=== PATIENT | female | born 1955 | race African-American/Black ===

== ENCOUNTER 2021-10-06 13:02 | Emergency (ER) | payer OTHER ==
[~2021-10-06] VITALS: Ht 162.6 cm; Wt 65.3 kg
[~2021-10-06 13:02] MED LIST: DUONEB 2.5-0.5 M3 ML INH; PREDNISONE 20 M20 MG PO; QVAR HFA 440 MCG/UN1 INH; VENTOLIN HFA INH8 GM IH; VENTOLIN17 GM INH; ZPAK PO; ZYRTEC10 M2 PO
[2021-10-06 16:29] LABS: URINE BILIRUBIN NEGATIVE (Negative); URINE BLOOD TRACE (Negative); URINE COLOR YELLOW; URINE GLUCOSE-RANDOM* NEGATIVE (Negative); URINE KETONES NEGATIVE (Negative); URINE LEUKOCYTES-REFLEX TRACE (Negative); URINE NITRITE-REFLEX NEGATIVE (Negative); URINE PROTEIN (DIPSTICK) NEGATIVE (Negative); URINE SPECIFIC GRAVITY >= 1.030 (1.005-1.035); URINE UROBILINOGEN 0.2 E.U./dl (0.2-1.0)
[2021-10-06 16:32] LABS: URINE CLARITY CLEAR
[2021-10-06 20:40] LABS: BASOPHILS 1.2 % (0.0-2.0); EOSINOPHILS 3.8 % (0.0-3.0); HEMATOCRIT 43.6 % (37.0-47.0); HEMOGLOBIN 14.3 gm/dL (12.0-15.0); MCH 27.3 pg (26.0-34.0); MCHC 32.8 g/dL (28.0-37.0); MCV 83.1 fL (80.0-100.0); MONOCYTES 8.5 % (1.0-8.0); PLATELET COUNT 330 thou/uL (150-400); POLYS 43.5 % (36.0-66.0); RBC 5.24 mil/uL (4.20-5.00); WBC 6.9 thou/uL (4.0-11.0)
[2021-10-06 20:58] LABS: CALCIUM 9.3 mg/dL (8.5-10.1); CREATININE 0.8 mg/dL (0.6-1.0); POTASSIUM 3.8 mmol/L (3.5-5.1)
[2021-10-06 21:04] LABS: ALBUMIN 3.8 g/dL (3.4-5.0); TOTAL BILIRUBIN 0.6 mg/dL (0.2-1.0); TOTAL PROTEIN 8.3 g/dL (6.4-8.2)
[2021-10-06 22:54] VITALS: BP 120/84
[2021-10-08] MEDS ORDERED: TRAMADOL 50 MG50 MG PO (14:23)
[2021-10-08] MEDS ORDERED: IPRAT-ALBUT 0.5-3 ML NEB (14:23)
[2021-10-08] MEDS ORDERED: VENTOLIN HFA INH8 GM INH (14:24)
[2021-10-08] MEDS ORDERED: QVAR REDIHALE10.6 G1 INH (14:26)
== END 2021-10-06 22:55 | disposition home or self-care (01) ==
LOC: ER 13:02
PROVIDERS: Nurse Practitioner
DX: K80.80 Other cholelithiasis without obstruction (principal); J45.909 Unspecified asthma, uncomplicated; Z79.899 Other long term (current) drug therapy

== ENCOUNTER → 2021-10-09 | Day surgery (SDC) | payer OTHER ==
[~2021-10-09] VITALS: Ht 162.6 cm; Wt 65.3 kg
[~2021-10-09] MED LIST changes: +HYDROCODON-ACE1 EAC7 PO; +IPRAT-ALBUT 0.5-3 ML NEB; +QVAR REDIHALE10.6 G1 INH; +TRAMADOL 50 MG50 MG PO; +VENTOLIN HFA INH8 GM INH
[2021-10-09 07:24] LABS: HEMATOCRIT 43.8 % (37.0-47.0); HEMOGLOBIN 13.8 gm/dL (12.0-15.0)
[2021-10-09 07:53] VITALS: BP 124/87
[2021-10-09 09:44] VITALS: BP 124/87
--- NOTE | 2021-10-10 15:07 | PATH ---
[facility] [place], [place] [address] [place] [address] PATHOLOGY RPT PROCEDURE Name: ROSE GAUTHIER Room #: REG [facility].#: [id number] Admission: 10/09/21 Date of : 55 Discharge: Report #: [id number] Path Case #: [id number] [facility] Accession Number: [id number] . 01 Material submitted: . gallbladder - GALLBLADDER . 01 Clinical history: . LAPAROSCOPIC CHOLECYSTECTOMY WITH G HERNIA REPAIR, UMBILICAL CHOLELITHIASIS WITH ACUTE CHOLECYSTITIS . 01 Diagnosis: Gallbladder, "gallbladder, cholecystectomy": - Moderate chronic cholecystitis. . (SHA:mmozzie; 10/10/2021) [facility] 10/10/2021 1315 Local . 01 Electronically signed: . Mark Stein MD, Pathologist NPI- [id number] . 01 Gross description: . Fixative: Formalin Labeled: Gallbladder Specimen received: Previously opened gallbladder Dimensions: 6.2 x 2.7 x 1.0 cm Serosa: Green-welch, wrinkled and roughened Lymph node: Not identified Mucosa: Velvety, bile-stained Average wall thickness: 0.2 cm Calculi: Not present Abnormalities: None identified . A1- Scrap Handler body, fundus, and the cystic duct margin. ([facility]; 10/09/2021) NRI/NRI 10/09/2021 1845 Local . 01 Pathologist provided ICD-10: K81.1 . 01 CPT . 070837 Specimen Comment: A courtesy copy of this report has been sent to [phone] Specimen Comment: Report sent to Performed at: [address] [address] PATHOLOGY RPT PROCEDURE Name: GAUTHIERROSE Room #: REG [facility]..#: [id number] Admission: 10/09/21 Date of : 55 Discharge: Report #: [id number] Path Case #: [id number] [facility] [address], [place], [place] [id number] MD Mark Stein MD Phone: [phone]
--- NOTE | 2021-10-11 11:05 | O ---
[facility] [place] [address] OPERATIVE REPORT Name: ROSE GAUTHIER Room #: REG [facility].#: [id number] Admission: 10/09/21 Attend Phys: Odilon Johnson MD Discharge: Date of : 55 Report #: [id number] THIS REPORT FOR: cc: NO FAMILY PHYSICIAN or PCP NO FAMILY PHYSICIAN or PCP Odilon Johnson MD ~ cc: Sanjuana Eldridge NP DATE OF SERVICE: 10/09/2021 PREOPERATIVE DIAGNOSES: 1. Acute cholecystitis with cholelithiasis. 2. Umbilical hernia. POSTOPERATIVE DIAGNOSES: 1. Acute cholecystitis with cholelithiasis. 2. Umbilical hernia. PROCEDURES PERFORMED: 1. Laparoscopic cholecystectomy with cholangiogram. 2. Repair of umbilical hernia. SURGEON: Odilon Johnson MD COMPLICATIONS: None. BLOOD LOSS: 5 mL DESCRIPTION OF PROCEDURE: With the patient under general anesthesia, IV antibiotic was administered. Timeout was performed. Abdomen was prepped and draped in sterile fashion. 0.25% Marcaine was used to anesthetize the skin infraumbilically. A curvilinear incision about 3 cm was made infraumbilically. Subcutaneous tissue was dissected. The skin was then lifted off the umbilicus. There was a hernia sac present. There was fat that was within the hernia. Later on when I looked laparoscopically, this fat was properitoneal fat and not the omental fat. The fat was reduced and the abdominal cavity was then identified. Opening to the abdominal cavity through the hernia was identified and the 11 mm trocar was placed through here without difficulty. CO2 was then insufflated. Two 5 mm trocars placed in right upper quadrant and a 5 mm trocar placed in right epigastrium. The patient was placed in the reverse Trendelenburg position, right side tilted up. Prior to procedure, timeout was performed. Preoperative IV antibiotic was also given. Gallbladder was then grasped, lifted cephalad. The medial aspect of the gallbladder, there was more of a yellowish discoloration consistent with edema in the wall and early acute cholecystitis. The peritoneum over the cystic duct was dissected free pretty easily. The cystic duct was isolated. The cystic artery was fairly close to [facility] [address] [place] [address] OPERATIVE REPORT Name: ROSE GAUTHIER Room #: REG [facility].#: [id number] Admission: 10/09/21 Attend Phys: Odilon Johnson MD Discharge: Date of : 55 Report #: [id number] the cystic duct lying posteriorly. The cystic duct was isolated. The junction of cystic duct to the gallbladder was then identified and a clip was placed here. Opening was made in the cystic duct just proximal to the clip. Cholangiogram catheter was inserted. Fluoroscopic cholangiogram was obtained. Common bile duct filled out well, no filling defect in the common duct. The hepatic ducts were seen. The cholangiogram catheter was identified in the cystic duct. No harm to the common duct. The catheter was then removed. The proximal cystic duct was then clipped x 2 and then the cystic duct was divided. The cystic artery was isolated without difficulty since the critical view had already been obtained. At this site, the cystic artery was branching anterior and posteriorly and these were clipped together. There were 2 clips proximally and 1 distally. Gallbladder was freed from the liver bed. Gallbladder was then retrieved through the umbilical hernia defect, came out easily. The gallbladder was opened off the field. It contained multiple stones, measuring close to a centimeter. No lesions seen in the gallbladder. Liver bed was checked, hemostasis was obtained. A small piece of Surgicel was placed in the liver bed. Irrigation was performed and irrigation was aspirated out. No bleeding was identified. Trocars then removed. CO2 was then evacuated as much as possible. The umbilical fascia defect was then identified. The fat was reduced in the properitoneal space. The fascia was then closed with [id number] 0 PDS x 2. The fascia defect came together without tension. The hernia defect is about 1.5 cm in size. Skin of the umbilicus was tacked down to the fascia level with 5-0 PDS. Skin was then closed with 5-0 PDS in running subcuticular fashion. 5-0 PDS were used to close the 5 mm trocar in interrupted fashion. Steri-Strip and Band-Aids were applied to the 5 mm trocar site. Steri-Strips, 4 x 4s, Op-Site was used for the umbilical area. The patient tolerated the procedure well. <ELECTRONICALLY SIGNED> By: Odlion Johnson MD 10/11/21 1105 06 30 Odilon Johnson MD /nt
== END | disposition home or self-care (01) ==
LOC: OR 06:26
PROVIDERS: ATTEND Surgery
DX: K81.1 Chronic cholecystitis (principal); K42.9 Umbilical hernia without obstruction or gangrene; J45.909 Unspecified asthma, uncomplicated; F17.210 Nicotine dependence, cigarettes, uncomplicated; Z98.890 Other specified postprocedural states; Z79.899 Other long term (current) drug therapy; Z20.822 Contact with and (suspected) exposure to COVID-19; Z98.51 Tubal ligation status
CPT/HCPCS: 50010; 50101; 50411; 50555; 51489; 52265; 53307; 53310; 53317; 55245; 56462; 56525; 56526; 58574; 58910; 62110; 62900; 70005